=== PATIENT | male | born 1955 | race Caucasian/White ===

== ENCOUNTER 2019-02-19 08:55 | Day surgery (SDC) | payer OTHER, SELFPAY ==
[2018-11-19 15:14] VITALS: BMI 26.9
[2019-02-19] VITALS (10 sets, daily range): BP systolic 124–165; BP diastolic 76–92; PULSE 73–99; RESP 11–20; TEMP 36.3–37.2; O2SAT 93–99; BMI 26.2
--- NOTE | 2019-02-19 | PATH_ITS ---
[facility] Accession Number: [id number] . 01 Material submitted: . hernia - UMBILICAL HERNIA SAC WITH CONTENTS . 01 Clinical history: . UMBILICAL HERNIA . 02 Diagnosis: Umbilical Hernia Sac, Biopsy: Consistent with hernia sac. MRV/02/21/2019 . 02 Electronically signed: . Fouzia Joy MD, Pathologist NPI- [id number] . 01 Gross description: . Received in formalin, labeled umbilical hernia sac with contents, are multiple pieces of ramsey-pink membranous and teran-yellow fatty tissue (4.3 x 3.6 x 0.8 cm in aggregate). Animal [employer] Attendant tissue submitted in cassette A1. ([id number]) /MRV . 02 Pathologist provided ICD-10: K42.9 . 02 CPT . 493773 Performed at: 01 [facility] [address] [id number] MD Dmitri Holley MD Phone: [phone] Performed at: 02 [facility] [address] [place], [place] [id number] MD Fouzia Joy MD Phone: [phone]
[2019-02-19] MEDS: LACTATED RINGERS 1,000 ML 42 ML IV (09:23)
--- NOTE | 2019-02-19 09:26 | PM.PREOP ---
Pre-operative Note Interval Note History & Physical reviewed/Exam performed by Physician: Yes Changes to H&P: No
[2019-02-19] MEDS: CEFAZOLIN 2 GM/100 ML FROZ.PIGGY IV (09:50)
--- NOTE | 2019-02-19 10:12 | SUR.OPER ---
Supine on padded OR bed, head on pillow, arms secured on padded arm boards at <90 degrees abduction, legs uncrossed, safety belt at thigh, tape over blanket over lower legs.
[2019-02-19] MEDS: BUPIVACAINE 0.25% W/ EPI 30 ML VIAL INJ (10:16)
--- NOTE | 2019-02-19 11:05 | PM.OP.1 ---
Operative Date/Time/Diagnoses Date of procedure: 02/19/19 Time of procedure: 11:00 Pre-op diagnosis: Umbilical Hernia Post-op diagnosis: same Procedure & Clinicians Procedure: Umbilical Hernia Repair with mesh Same procedure as scheduled: Yes Indications: 63yo M with an enlarging umbilical hernia, now with incarcerated fat. He underwent a thorough cardiac workup and has been cleared for low to moderate risk for general anesthesia. He understands all risks, benefits, and alternatives and wishes to proceed. Surgeon: Gifty Tabler Click Yes if Unassisted: Yes Anesthesia Type: General Operative Notes Findings: umbilical hernia with incarcerated fat, defect 2cm Closure Type: primary Specimen(s): other (umbilical hernia sac and contents ) Estimated Blood Loss (mL): 10 Procedure in detail: The patient was taken to the operating room and placed on the operating table in supine position then induced to an acceptable level of anesthesia. The abdomen was prepped and draped in usual sterile fashion. Using a 15 blade scalpel, an approximately 3cm incision was made just below the umbilicus. This was taken down through the subcutaneous tissue using electrocautery. The hernia sac was identified. It was opened and the peritoneal cavity was identified as well. The hernia was opened widely and then transected along its attachments to the fascia. The fascial defect measured approximately 2cm. The posterior aspect of the fascia was cleaned circumferentially. And all omental adhesions were taken down.The anterior aspect of the fascia was then cleaned approximately 2 cm in all directions. A 4.2cm x 4.2cm piece of V-patch mesh was chosen. The mesh was placed in an underlay fashion and secured to the fascia in an interrupted fashion using 0-Ethibond interrupted sutures. Each suture was marked with a hemostat. There was noted to be no tension on the repair, and there was no redundancy of the mesh. Once all sutures were placed and mesh placement was noted to be satisfactory, the sutures were then tied. The fascia was then closed over the mesh using 0-Ethibond sutures. Subcutaneous tissues were irrigated and dried. Hemostasis was obtained using electrocautery. The umbilical stalk was tacked down to the level of the fascia using a 3-0 Vicryl suture. The deep subcutaneous tissues were closed using 3-0 Vicryl in an interrupted fashion. The skin was then closed using 4-0 monocryl in a running fashion. The abdomen was cleaned and dried. Steri strips and a pressure dressing were placed over the incision. The patient was awakened and taken to the postanesthesia care unit in stable condition. All counts were correct at the end of the procedure. Complications: none Condition: stable Disposition: PACU Plan for aftercare: home
[2019-02-19] MEDS: OXYCODONE/ACETAMINOPHEN 5/325 TABLET 1 TAB PO (11:29)
[2019-02-19] MEDS: BENZOCAINE/MENTHOL 1 LOZ PKT 1 EACH PO (12:34)
== END 2019-02-19 13:00 | disposition home or self-care (01) ==
PROVIDERS: PCP Family Medicine; Visit Provider Surgery
PROC: (CPT 49587; principal; 2019-02-19 09:45)
DX: K42.0 Umbilical hernia with obstruction, without gangrene (principal); K66.0 Peritoneal adhesions (postprocedural) (postinfection); I10 Essential (primary) hypertension; Z87.891 Personal history of nicotine dependence
CPT/HCPCS: 49587; C1781; J0690; J1100; J1170; J1885; J2250; J2405; J2704; J3010